=== PATIENT | female | born 1995 | race Hispanic/Latino ===

== ENCOUNTER 2019-06-06 13:06 | Emergency (ER) | payer BC ==
[2019-06-06] MEDS ORDERED: NA CHLORIDE 0.9% 1,000 ML ONE (13:55)
[2019-06-06] MEDS ORDERED: PROMETHAZINE INJ 25 MG/ML AMP ONE (13:55)
[2019-06-06 13:56] LABS: Absolute Lymphocytes (CBC) 1.8 K/uL (0.7-4.9); Basophils % 0.4 % (0-1.3); Lymphocytes % 20.3 % (15.3-44.8); MPV 7.8 fL (7.6-11.3); RBC Red Blood Cell Count 4.57 M/uL (3.86-4.86)
[2019-06-06 14:12] LABS: BUN Blood Urea Nitrogen 12 mg/dL (7-18); Bicarbonate 25 mmol/L (21-32); Glucose Level 94 mg/dL (74-106); Potassium 3.5 mmol/L (3.5-5.1); Sodium Level 136 mmol/L (136-145)
[2019-06-06 14:34] LABS: Urine Blood 2+ (NEG); Urine Glucose NEGATIVE (NEG); Urine Protein 1+ (NEG); Urine Specific Gravity >1.030 (1.005-1.030)
--- NOTE | 2019-06-06 14:36 | EDPHYS ---
Physician Documentation [facility] Name: Daniel Christian Age: 24 yrs Sex: Female : 1995 Arrival Date: 06/06/2019 Time: 13:09 Bed 20 Private MD: ED Physician Checo Montalvo HPI: 06/05 14:33 This 24 yrs old Female presents to ER via Ambulatory with complaints of kb Nausea/Vomiting, Possible Preg. 14:33 The patient presents to the emergency department with nausea, vomiting. Onset: The kb symptoms/episode began/occurred last week. Possible causes: bad food exposure, . The symptoms are aggravated by nothing. The symptoms are alleviated by nothing. Associated signs and symptoms: Pertinent positives: nausea, vomiting, Pertinent negatives: abdominal pain, diarrhea, fever. Severity of symptoms: At their worst the symptoms were mild moderate in the emergency department the symptoms are unchanged. The patient has not experienced similar symptoms in the past. The patient has not recently seen a physician. Pt states she thought she had food poisoning, but after a few days of nausea and vomiting she took a test and it was positive. Came in to make sure everything is ok. LMP 04/13/19. CLINICAL LIAISON: 14:30 1, LMP 04/13/2019 ca1 Historical: - Allergies: 13:24 No Known Allergies; sv - PMHx: 13:24 None; sv - PSHx: 13:24 None; sv - Immunization history:: Flu vaccine is up to date. - Social history:: Smoking status: Patient denies any tobacco usage or history of. ROS: 14:32 Constitutional: Negative for fever, chills, and weight loss, Neck: Negative for injury, kb pain, and swelling, Cardiovascular: Negative for chest pain, palpitations, and edema, Respiratory: Negative for shortness of breath, cough, wheezing, and pleuritic chest pain, Back: Negative for injury and pain, MS/Extremity: Negative for injury and deformity, Skin: Negative for injury, rash, and discoloration, Neuro: Negative for headache, weakness, numbness, tingling, and seizure. 14:32 Abdomen/GI: Positive for nausea and vomiting, Negative for abdominal pain, diarrhea. Exam: 14:32 Constitutional: This is a well developed, well nourished patient who is awake, alert, kb and in no acute distress. Head/Face: Normocephalic, atraumatic. Chest/axilla: Normal chest wall appearance and motion. Nontender with no deformity. No lesions are appreciated. Cardiovascular: Regular rate and rhythm with a normal S1 and S2. No gallops, murmurs, or rubs. Normal PMI, no JVD. No pulse deficits. Respiratory: Lungs have equal breath sounds bilaterally, clear to auscultation and percussion. No rales, rhonchi or wheezes noted. No increased work of breathing, no retractions or nasal flaring. Abdomen/GI: Soft, non-tender, with normal bowel sounds. No distension or tympany. No guarding or rebound. No evidence of tenderness throughout. Skin: Warm, dry with normal turgor. Normal color with no rashes, no lesions, and no evidence of cellulitis. MS/ Extremity: Pulses equal, no cyanosis. Neurovascular intact. Full, normal range of motion. Neuro: Awake and alert, GCS 15, oriented to person, place, time, and situation. Cranial nerves II-XII grossly intact. Motor strength 5/5 in all extremities. Sensory grossly intact. Cerebellar exam normal. Normal gait. Vital Signs: 13:24 BP 121 / 72; Pulse 101; Resp 16; Temp 99.7; Pulse Ox 100% ; Weight 38.56 kg; Height 5 sv ft. 2 in. (157.48 cm); 14:29 BP 98 / 68; Pulse 74; Resp 17 S; Pulse Ox 100% on R/A; ca1 14:45 BP 108 / 76; Pulse 82; Resp 17 S; Temp 98.5(O); Pulse Ox 100% on R/A; ca1 13:24 Body Mass Index 15.55 (38.56 kg, 157.48 cm) sv MDM: 13:29 Patient medically screened. kb 14:32 Data reviewed: vital signs, nurses notes. Data interpreted: Pulse oximetry: on room air kb is 100 %. Interpretation: normal. Counseling: I had a detailed discussion with the patient and/or guardian regarding: the historical points, exam findings, and any diagnostic results supporting the discharge/admit diagnosis, lab results, the need for outpatient follow up, an OB/Gyne specialist, to return to the emergency department if symptoms worsen or persist or if there are any questions or concerns that arise at home. 06/05 13:39 Order name: Urine Dipstick--Ancillary (enter results); Complete Time: 14:33 bd 06/05 13:39 Order name: Urine --Ancillary (enter results); Complete Time: 14:33 bd 06/05 13:41 Order name: CBC with Diff; Complete Time: 14:07 kb 06/05 13:41 Order name: Basic Metabolic Panel; Complete Time: 14:14 kb 06/05 13:29 Order name: Urine Test (obtain specimen); Complete Time: 13:38 kb 06/05 13:29 Order name: Urine Dipstick-Ancillary (obtain specimen); Complete Time: 13:38 kb 06/05 13:41 Order name: IV Start; Complete Time: 13:47 kb 06/05 14:08 Order name: PO challenge; Complete Time: 14:21 kb Administered Medications: 13:50 Drug: NS 0.9% 1000 ml Route: IV; Rate: 1000 ml; Site: right antecubital; ca1 14:39 Follow up: IV Status: Completed infusion ca1 13:51 Drug: Phenergan 6.25 mg Route: IVP; Site: right antecubital; ca1 14:39 Follow up: Response: No adverse reaction; Nausea is decreased ca1 Disposition: 15:36 Co-signature as Attending Physician, Checo Montalvo MD I agree with the assessment and kdr plan of care. Disposition: 06/06/19 14:35 Discharged to Home. Impression: Vomiting of , unspecified. - Condition is Stable. - Discharge Instructions: Morning Sickness, [id number]. - Prescriptions for Diclegis 10- 10 mg Oral tablet,delayed release (DR/EC) - take 1 tablet by ORAL route once daily As needed; 10 tablet. - Medication Reconciliation Form, Thank You Letter, Antibiotic Education, Prescription Opioid Use form. - Follow up: Emergency Department; When: As needed; Reason: Worsening of condition. Follow up: Private Physician; When: 2 - 3 days; Reason: Recheck today's complaints, Continuance of care, Re-evaluation by your physician. Signatures: Dispatcher [employer] Randi Torres, IVETTE ARAGON-Janis Poole RN Checo Tracy MD MD Mackenzie Owens RN RN ca1 Corrections: (The following items were deleted from the chart) 14:36 14:33 Pt states she thought she had food poisoning, but after a few days of nausea and kb vomiting she took a test and it was positive. Came in to make sure everything is ok. kb 14:47 14:35 06/06/2019 14:35 Discharged to Home. Impression: Vomiting of , ca1 unspecified. Condition is Stable. Forms are Medication Reconciliation Form, Thank You Letter, Antibiotic Education, Prescription Opioid Use. Follow up: Emergency Department; When: As needed; Reason: Worsening of condition. Follow up: Private Physician; When: 2 - 3 days; Reason: Recheck today's complaints, Continuance of care, Re-evaluation by your physician. kb
--- NOTE | 2019-06-06 14:36 | ER ---
Nurse's Notes [facility] Name: Daniel Christian Age: 24 yrs Sex: Female : 1995 Arrival Date: 06/06/2019 Time: 13:09 Bed 20 Private MD: Diagnosis: Vomiting of , unspecified Presentation: 06/05 13:22 Chief complaint: Patient states: "I think I may have food poisoning after having Wing sv Stop 5 days ago and can't stop throwing up and I think I may be ." Reports taking a test and it had a faint pink line, reports losing 15 pounds. Coronavirus screen: Proceed with normal triage. Patient denies a cough. Patient denies shortness of breath or difficulty breathing. Patient denies measured and/or subjective temperature greater than 100.4F prior to today's visit. Patient denies travel on a cruise ship or to a country the [facility] currently lists as an affected area. Patient denies contact with known and/or suspected case of COVID-19. Ebola Screen: No symptoms or risks identified at this time. Risk Assessment: Do you want to hurt yourself or someone else? Patient reports no desire to harm self or others. Onset of symptoms was June 02, 2019. 13:22 Method Of Arrival: Ambulatory sv 13:22 Acuity: NAUN 3 sv 13:35 Initial Sepsis Screen: Does the patient meet any 2 criteria? No. Patient's initial ca1 sepsis screen is negative. Does the patient have a suspected source of infection? No. Patient's initial sepsis screen is negative. Triage Assessment: 13:22 General: Appears in no apparent distress. slender, Behavior is calm, cooperative, sv appropriate for age. Pain: Denies pain. Neuro: Level of Consciousness is awake, alert, obeys commands, Gait is steady. Respiratory: Respiratory effort is even, unlabored. GI: Reports nausea, vomiting. CARGO BROKER: 14:30 1, LMP 04/13/2019 ca1 Historical: - Allergies: 13:24 No Known Allergies; sv - PMHx: 13:24 None; sv - PSHx: 13:24 None; sv - Immunization history:: Flu vaccine is up to date. - Social history:: Smoking status: Patient denies any tobacco usage or history of. Screenin:35 Abuse screen: Denies threats or abuse. Denies injuries from another. Nutritional ca1 screening: No deficits noted. Tuberculosis screening: No symptoms or risk factors identified. Fall Risk IV access (20 points). Assessment: 13:35 General: Appears in no apparent distress. comfortable, Behavior is calm, cooperative, ca1 appropriate for age. Pain: Denies pain. Neuro: Level of Consciousness is awake, alert, obeys commands, Oriented to person, place, time, situation, Appropriate for age. Cardiovascular: Heart tones S1 S2 present Capillary refill < 3 seconds Patient's skin is warm and dry. Respiratory: Airway is patent Respiratory effort is even, unlabored, Respiratory pattern is regular, symmetrical. GI: Abdomen is flat, non-distended, Bowel sounds present X 4 quads. Abd is soft and non tender X 4 quads. Reports nausea, vomiting, since 4-5 days ago. : Urine is clear. EENT: No signs and/or symptoms were reported regarding the EENT system. Derm: Skin is intact, is healthy with good turgor, Skin is pink, warm \\T\\ dry. Musculoskeletal: Circulation, motion, and sensation intact. Capillary refill < 3 seconds. 14:26 Reassessment: PO challenge completed. No reports of N/V at this time. Reassessment: ca1 Patient appears in no apparent distress at this time. Patient and/or family updated on plan of care and expected duration. Pain level reassessed. Patient is alert, oriented x 3, equal unlabored respirations, skin warm/dry/pink. Patient states feeling better. Vital Signs: 13:24 BP 121 / 72; Pulse 101; Resp 16; Temp 99.7; Pulse Ox 100% ; Weight 38.56 kg; Height 5 sv ft. 2 in. (157.48 cm); 14:29 BP 98 / 68; Pulse 74; Resp 17 S; Pulse Ox 100% on R/A; ca1 14:45 BP 108 / 76; Pulse 82; Resp 17 S; Temp 98.5(O); Pulse Ox 100% on R/A; ca1 13:24 Body Mass Index 15.55 (38.56 kg, 157.48 cm) sv ED Course: 13:09 Patient arrived in ED. ag5 13:21 Randi Dow FNP-C [facility]. kb 13:21 Checo Montalvo MD is Attending Physician. kb 13:24 Triage completed. sv 13:24 Arm band placed on. sv 13:35 Patient has correct armband on for positive identification. Bed in low position. Call ca1 light in reach. Side rails up X 1. Pulse ox on. NIBP on. Warm blanket given. 13:38 Mackenzie Villafuerte, RN is Primary Nurse. ca1 13:40 Urine collected: clean catch specimen, clear, Amount Voided: 60mL. ca1 13:48 No provider procedures requiring assistance completed. Initial lab(s) drawn, by ga, ca1 sent to lab. Inserted saline lock: 20 gauge in right antecubital area, using aseptic technique. Blood collected. 14:46 IV discontinued, intact, bleeding controlled, No redness/swelling at site. Pressure ca1 dressing applied. Administered Medications: 13:50 Drug: NS 0.9% 1000 ml Route: IV; Rate: 1000 ml; Site: right antecubital; ca1 14:39 Follow up: IV Status: Completed infusion ca1 13:51 Drug: Phenergan 6.25 mg Route: IVP; Site: right antecubital; ca1 14:39 Follow up: Response: No adverse reaction; Nausea is decreased ca1 Outcome: 14:35 Discharge ordered by MD. kb 14:46 Discharged to home ambulatory. ca1 14:46 Condition: stable 14:46 Discharge instructions given to patient, Instructed on discharge instructions, follow up and referral plans. medication usage, Demonstrated understanding of instructions, follow-up care, medications, Prescriptions given X 1. 14:47 Patient left the ED. ca1 Signatures: Randi Dow FNP-C FNP-Janis Poole RN RN Mackenzie Villafuerte, ELVIS RN [facility] Estefania Lowery ag5
[2019-06-06 14:57] VITALS: O2SAT 100
[2019-06-06 15:06] VITALS: BP 108/76; TEMP 98.5
== END 2019-06-06 14:47 | disposition home or self-care (01) ==
LOC: ER 13:06
DX: O21.9 Vomiting of pregnancy, unspecified (principal); Z3A.00 Weeks of gestation of pregnancy not specified
CPT/HCPCS: 96361; 85025; 80048; 36415; 81025; 81003; 96374; 99284; J2550; J7030